=== PATIENT | male | born 1970 | race Caucasian/White ===

== ENCOUNTER 2016-07-06 17:28 | Emergency (ER) | payer MEDICARE, MEDICAID ==
[2016-07-06 18:39] VITALS: BP 144/85
--- NOTE | 2016-07-06 19:16 | UC ---
Lower Extremity/Ankle HPI - HPI Summary HPI Summary: The patient comes in today for: 1. Left ankle: Onset: This morning. Palliative/provocative: Rest, ice and no movement helps. Tylenol and oxycodone helped. He took this as his usual for his chronic pain. Quality: Throbbing, sharp. Region: Left ankle Severity: 2/10 at rest. Time: Comes and goes Associated symptoms: Oxycodone is taken for chronic pain in his neck and back--degenerative disc disease for "a couple years." Event: He was walking out his front door and slipped on the robins on the front steps. He states that his foot went under the bottom step. He states he suffered an inversion injury. Home treatment: elevation and ice. * - History of Current Complaint Chief Complaint: UCLowerExtremity Stated Complaint: FOOT INJURY Time Seen by Provider: 07/06/16 19:09 Hx Obtained From: Patient Onset/Duration: Sudden Onset - Allergies/Home Medications Allergies/Adverse Reactions: Allergies Allergy/AdvReac Type Severity Reaction Status Date / Time No Known Allergies Allergy Verified 07/06/16 18:39 PMH/Surg Hx/FS Hx/Imm Hx Previously Healthy: No - Chronic neck and lower back disc disease Endocrine History Of: Denies: Diabetes, Thyroid Disease, Hyperthyroidism, Hypothyroidism, Dyslipidemia Cardiovascular History Of: Denies: Cardiac Disorders, Hypertension, Pacemaker/ICD, Myocardial Infarction , Congestive Heart Failure, Atrial Fibrillation, Deep Vein Thrombosis, Bleeding Disorders Respiratory History Of: Denies: COPD, Asthma, Bronchitis, Pneumonia, Pulmonary Embolism GI/ History Of: Reports: Gastroesophageal Reflux Denies: Ulcer, Gastrointestinal Bleed, Gall Bladder Disease, Kidney Stones, Diverticulitis, Renal Disease, Urosepsis Neurological History Of: Reports: Migraine Denies: TIA, CVA, Dementia, Seizures Psychological History Of: Reports: Depression Denies: Anxiety, Bipolar Disorder, Schizophrenia, Post Traumatic Stress Disorder Cancer History Of: Denies: Lung Cancer, Colorectal Cancer, Breast Cancer, Prostate Cancer, Cervical Cancer Other History Of: Hepatitis C - He wonders if he has hepatitis C, he had a blood test that was positive. Negative For: HIV, Hepatitis B, Anticoagulant Therapy - Surgical History Surgical History: Yes Surgery Procedure, Year, and Place: B/L CARPAL TUNNEL. VASECTOMY. neck surgery 06/2014- replaced c4-5 - [facility] - Family History Known Family History: Positive: Cardiac Disease - mother, Other - father with cancer - Social History Occupation: Unemployed Alcohol Use: Rare Alcohol Amount: SOBER FOR 3-4 years Substance Use Type: None, Prescribed Smoking Status (MU): Light Every Day Tobacco Smoker Type: Cigarettes Amount Used/How Often: 2-3 CIGS PERDAY, TAKING CHANTIX Length of Time of Smoking/Using Tobacco: 30 yrs Have You Smoked in the Last Year: Yes When Did the Patient Quit Smoking/Using Tobacco: Taking chantex Household Exposure Type: Cigarettes - Immunization History Most Recent Influenza Vaccination: none Review of Systems Constitutional: Negative Skin: Negative Eyes: Negative ENT: Negative Respiratory: Negative, Cough - "In the last few weeks, but has gotten better." Cardiovascular: Negative Gastrointestinal: Negative Genitourinary: Negative Musculoskeletal: Arthralgia, Myalgia All Other Systems Reviewed And Are Negative: Yes Physical Exam Triage Information Reviewed: Yes Appearance: Well-Appearing - at rest., No Pain Distress, Well-Nourished Vital Signs: Initial Vital Signs Temp 98.0 F 07/06/16 18:36 Pulse 80 07/06/16 18:36 Resp 18 07/06/16 18:36 BP 144/85 07/06/16 18:36 Pulse Ox 98 07/06/16 18:36 Vital Signs Reviewed: Yes Eyes: Positive: Conjunctiva Clear. Negative: Discharge ENT: Positive: Hearing grossly normal. Negative: Pharyngeal erythema, Nasal congestion, Nasal drainage, TM bulging, TM dull, TM red, Tonsillar swelling, Tonsillar exudate Dental: Negative: Gross Decay/Caries @, Dental Fracture @ Neck: Positive: Supple, Nontender, No Lymphadenopathy. Negative: Nuchal Rigidity Respiratory: Positive: Chest non-tender, Lungs clear, No respiratory distress, No accessory muscle use. Negative: Crackles, Wheezing Cardiovascular: Positive: RRR, No Murmur Abdomen Description: Positive: Nontender, No Organomegaly, Soft. Negative: Distended, Guarding Musculoskeletal: Positive: Strength Intact, ROM Intact, No Edema, Other: - The Villegas test was normal. There was no depression of the Achilles tendon with slight dorsiflexsion. Neurological: Positive: Alert, Muscle Tone Normal Psychological: Positive: Age Appropriate Behavior, Consolable Skin: Negative: rashes, breakdown Diagnostics - Radiology No standard instances Xray Interpretation: No Acute Changes Radiology Interpretation Completed By: ED Physician Lower Extremity Course/Dx - Course Course Of Treatment: Patient was told that I did not see any fractures, but sometimes the radiologist will see them when I don't. He was told of his treatment options including leaving, but if the report came back positive, he would be asked to come back. He states that he wants to go home. - Differential Dx/Diagnosis Provider Diagnoses: Left ankle sprain. Discharge - Discharge Plan Condition: Stable Disposition: HOME Patient Education Materials: Ankle Sprain (ED) Referrals: Elena Young PA [Primary Care Provider] - 1 Week (Please see your primary care provider later this week to see how well you are doing. If you get worse, please be seen sooner.)
[2016-07-06] MEDS ORDERED: Ketorolac INJ* 60 MG/2 ML VIAL IM ONE (19:37)
--- NOTE | 2016-07-06 20:59 | RAD ---
Indication: Ankle pain after fall. 3 views of the ankle demonstrate soft tissue swelling laterally. No fracture is identified. IMPRESSION: Soft tissue swelling laterally without evidence of fracture.
== END 2016-07-06 21:02 | disposition home or self-care (01) ==
LOC: UCCORT 17:28
DX: S93.402A Sprain of unspecified ligament of left ankle, initial encounter (principal); F17.210 Nicotine dependence, cigarettes, uncomplicated; W00.1XXA Fall from stairs and steps due to ice and snow, initial encounter; Y92.9 Unspecified place or not applicable
CPT/HCPCS: 96372; 99213; G0463; J1885

== ENCOUNTER 2017-04-07 14:14 | Emergency (ER) | payer MEDICARE, OTHER ==
[2017-04-07 15:36] VITALS: BP 125/78
--- NOTE | 2017-04-07 16:33 | RAD ---
INDICATION: Shortness of breath. Cough COMPARISON: None TECHNIQUE: PA and lateral dual-energy views were obtained. FINDINGS: Bones/Soft Tissues: There are no acute bony findings. Cardiomediastinal: The cardiomediastinal silhouette is normal. Lungs: There are no infiltrates. Pleura: There are no pleural effusions. Other: None IMPRESSION: NO ACTIVE DISEASE.
--- NOTE | 2017-04-07 16:37 | UC ---
Respiratory Complaint HPI - HPI Summary HPI Summary: Pt c/o cough, sob, X 2 weeks. - History of Current Complaint Chief Complaint: UCGeneralIllness Stated Complaint: COUGH CONGESTION Time Seen by Provider: 04/07/17 15:19 Hx Obtained From: Patient Onset/Duration: Gradual Onset, Lasting Weeks, Still Present Severity Initially: Mild Severity Currently: Mild Character: Cough: Nonproductive Associated Signs And Symptoms: Positive: URI - Risk Factors Pulmonary Embolism Risk Factors: Smoking Cardiac Risk Factors: Smoking Tuberculosis Risk Factors: Negative - Allergies/Home Medications Allergies/Adverse Reactions: Allergies Allergy/AdvReac Type Severity Reaction Status Date / Time Trazodone Allergy Altered Verified 04/07/17 15:36 Mental Status Home Medications: Home Medications Cholecalciferol TAB* [Vitamin D TAB*] 1,000 unit PO DAILY 04/07/17 [History Confirmed 04/07/17] PMH/Surg Hx/FS Hx/Imm Hx Previously Healthy: Yes Other History Of: Hepatitis C - He wonders if he has hepatitis C, he had a blood test that was positive. Negative For: HIV, Hepatitis B, Anticoagulant Therapy - Surgical History Surgical History: Yes Surgery Procedure, Year, and Place: B/L CARPAL TUNNEL. VASECTOMY. neck surgery 06/2014- replaced c5-6-7 - [facility] - Family History Known Family History: Positive: Cardiac Disease - mother, Other - father with cancer - Social History Occupation: Employed Full-time Lives: With Family Alcohol Use: Rare Alcohol Amount: SOBER FOR 3-4 years Substance Use Type: None, Prescribed Smoking Status (MU): Light Every Day Tobacco Smoker Type: Cigarettes Amount Used/How Often: 1/2- 3/4 ppd Length of Time of Smoking/Using Tobacco: 30 yrs Have You Smoked in the Last Year: Yes When Did the Patient Quit Smoking/Using Tobacco: Taking chantex Household Exposure Type: Cigarettes - Immunization History Most Recent Influenza Vaccination: none Review of Systems Constitutional: Negative Skin: Negative Eyes: Negative ENT: Negative Respiratory: Shortness Of Breath, Cough Cardiovascular: Negative Gastrointestinal: Negative Genitourinary: Negative Motor: Negative Neurovascular: Negative Musculoskeletal: Negative Neurological: Negative Psychological: Negative Is Patient Immunocompromised?: No All Other Systems Reviewed And Are Negative: Yes Physical Exam Triage Information Reviewed: Yes Appearance: Well-Appearing Vital Signs: Initial Vital Signs Temp 98.4 F 11/22/17 15:32 Pulse 88 04/07/17 15:32 Resp 17 04/07/17 15:32 BP 125/78 04/07/17 15:32 Pulse Ox 100 04/07/17 15:32 Vital Signs Reviewed: Yes Eye Exam: Normal ENT Exam: Normal ENT: Positive: Nasal congestion Neck exam: Normal Respiratory Exam: Normal Cardiovascular Exam: Normal Musculoskeletal Exam: Normal Neurological Exam: Normal Psychological Exam: Normal Skin Exam: Normal UC Diagnostic Evaluation - Laboratory O2 Sat by Pulse Oximetry: 100 Respiratory Course/Dx - Course Course Of Treatment: Xray: IMPRESSION: NO ACTIVE DISEASE. - Differential Dx/Diagnosis Differential Diagnosis/HQI/PQRI: Bronchitis, Influenza Provider Diagnoses: Bronchitis. IMPRESSION: NO ACTIVE DISEASE. Discharge - Discharge Plan Condition: Stable Disposition: HOME Prescriptions: Azithromycin TAB* [Zithromax TAB (Z-LUCIUS) 250 mg #6 tabs] 2 tab PO .TODAY, THEN 1 DAILY #1 lucius Benzonatate CAP* [Tessalon 100 MG CAP*] 100 mg PO TID PRN #21 cap PRN Reason: Cough predniSONE TAB* [Deltasone TAB*] 30 mg PO DAILY #9 tab Patient Education Materials: Acute Bronchitis (ED) Referrals: Elena Young PA [Primary Care Provider] - If Needed
== END 2017-04-07 16:48 | disposition home or self-care (01) ==
LOC: UCCORT 14:14
DX: J40 Bronchitis, not specified as acute or chronic (principal); F17.210 Nicotine dependence, cigarettes, uncomplicated
CPT/HCPCS: 71020; 99212; G0463